=== PATIENT | female | born 1990 | race Asian ===

== ENCOUNTER 2018-02-16 05:38 | Emergency (ER) | payer BC ==
[2018-02-16 06:07] VITALS: BP 114/68; PULSE 82; TEMP 98.5; BMI 24.3
--- NOTE | 2018-02-16 06:13 | PDOC ---
History of Present Illness - General Chief Complaint: Pain Stated Complaint: ABD PAIN Time Seen by Provider: 02/16/18 05:50 History Source: Patient Exam Limitations: No Limitations - History of Present Illness Initial Comments: This is a 27 YOF with h/o Sjogren syndrome, asthma, and presumed passed gallbladder stone (notes episode of elevated liver enzymes and RUQ pain, had HIDA nad MRCP which showed nothing) who p/w 1.5 days of diffuse abdominal pain worse in the umbilical and RUQ regions, nausea, 7 episodes of NBNB vomiting, and loose brown diarrhea. She believes she ate a "bad sandwich" just prior to the onset, resulting in food poisoning. The abdominal pain started out as intermittent sharp pain up to 8 but has become constant since last night. For a short time it began radiating to her right lower back this morning, but this has since resolved. She notes chills and diffuse hand/foot cramping, but no measured fever, bloody/black stool, headache, lightheadedness, chest pain, SOB, dysuria, strange colors/smells to the urine, vaginal bleeding or discharge. Her LMP was three weeks ago and was normal, and she denies any chance she may be . Past History - Past Medical History Allergies/Adverse Reactions: Allergies Allergy/AdvReac Type Severity Reaction Status Date / Time No Known Allergies Allergy Verified 02/16/18 06:07 Home Medications: Ambulatory Orders Azathioprine [Imuran] 0 mg PO DAILY 08/20/15 Hydroxychloroquine Sulfate [Plaquenil] 0 mg PO DAILY 08/20/15 Levofloxacin [Levaquin] 750 mg PO DAILY #5 tablet 08/22/15 Asthma: Yes - Surgical History Orthopedic Surgery: Yes (left footx3) - Reproductive History (#): 0 - Suicide/Smoking/Psychosocial Hx Smoking History: Never smoked Have you smoked in the past 12 months: No Information on smoking cessation initiated: No Hx Alcohol Use: No Drug/Substance Use Hx: No Substance Use Type: None Hx Substance Use Treatment: No Review of Systems - Review of Systems Able to Perform ROS?: Yes Constitutional: No: Chills, Fever, Unexplained wgt Loss HEENTM: No: Nose Congestion, Throat Pain Respiratory: No: Cough, Shortness of Breath Cardiac (ROS): No: Chest Pain, Palpitations ABD/GI: Yes: Constipated, Diarrhea (resolved), Nausea, Vomiting, Other ( abdominal pain). No: Blood Streaked Bowels : No: Burning, Dysuria Musculoskeletal: Yes: Back Pain (right lower). No: Neck Pain Integumentary: No: Bruising, Rash Neurological: No: Headache, Numbness, Tingling, Weakness, Dizziness Endocrine: No: Unexplained Weight Gain, Unexplained Weight Loss *Physical Exam - Vital Signs Last Vital Signs Temp Pulse Resp BP Pulse Ox 98.5 F 82 18 114/68 100 02/16/18 05:59 02/16/18 05:59 02/16/18 05:59 02/16/18 05:59 02/16/18 05:59 - Physical Exam General Appearance: Yes: Nourished, Appropriately Dressed, Other (soft spoken nontoxic-appearing young adult female, awake, alert, answering questions appropriately). No: Apparent Distress HEENT: positive: EOMI, MARLENI, Normal Voice, Hearing Grossly Normal. negative: Scleral Icterus (R), Scleral Icterus (L), Nasal Congestion Neck: positive: Trachea midline, Supple. negative: Tender, Rigid Respiratory/Chest: positive: Lungs Clear, Normal Breath Sounds. negative: Respiratory Distress, Crackles, Rhonchi, Stridor, Wheezing Cardiovascular: positive: Regular Rhythm, Regular Rate, S1, S2. negative: Edema , JVD, Murmur Gastrointestinal/Abdominal: positive: Normal Bowel Sounds, Flat, Soft. negative : Tender, Organomegaly, Pulsatile Mass, Guarding Musculoskeletal: positive: Normal Inspection. negative: Decreased Range of Motion, Vertebral Tenderness Extremity: positive: Normal Capillary Refill, Normal Inspection, Normal Range of Motion. negative: Tender, Cyanosis Integumentary: positive: Normal Color, Dry, Warm. 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 Initial Vital Signs Temp Pulse Resp BP Pulse Ox 98.5 F 82 18 114/68 100 02/16/18 05:59 02/16/18 05:59 02/16/18 05:59 02/16/18 05:59 05/15/18 05:59 Exam: Nontoxic and well appearing adult female, no distress, heart and lungs normal exams, nontender abdomen, normoactive BS. DDX IBNLT: viral gastroenteritis, UTI/pyelonephritis, , cholecystitis ( calculous vs. acalculous), choledocholithiasis, cholangitis, pancreatitis, appendicitis, gastritis, PUD, colitis, diverticulitis wwo abscess or perforation , renal colic, obstructive uropathy, hernia, SBO, mesenteric/bowel ischemia, bowel perforation, malignancy, ovarian torsion, ovarian cyst, ectopic , fibroids, constipation, gas, musculoskeletal, etc. W/U ordered: CBCD CMP Lipase UA UCx Urine Preg EKG TX ordered: IVF Ofirmev Zofran Pepcid Maalox Care endorsed to oncoming day team at the end of my shift. *DC/Admit/Observation/Transfer Diagnosis at time of Disposition: Abdominal pain - Referrals - Patient Instructions - Post Discharge Activity
[2018-02-16] MEDS ORDERED: SODIUM CHLORIDE 0.9% 500 ML INFUS.BAG IV ONE (06:37)
[2018-02-16] MEDS ORDERED: ONDANSETRON 4 MG/2 ML VIAL IVPUSH ONE (06:37)
[2018-02-16] MEDS ORDERED: ACETAMINOPHEN 1000 MG/100 ML VIAL (NON FORMULARY) IVPB ONE (06:37)
[2018-02-16 06:39] LABS: HCG,QUALITATIVE URINE NEGATIVE
[2018-02-16 06:43] LABS: URINE APPEARANCE CLEAR; URINE BILIRUBIN NEGATIVE (<2.0 mg/dL); URINE COLOR COLORLESS; URINE GLUCOSE (UA) NEGATIVE (NEGATIVE); URINE KETONE NEGATIVE (NEGATIVE); URINE LEUK ESTERASE NEGATIVE (NEGATIVE); URINE NITRITE NEGATIVE (NEGATIVE); URINE PROTEIN NEGATIVE (NEGATIVE); URINE UROBILINOGEN NEGATIVE mg/dL (0.2-1.0)
--- NOTE | 2018-02-16 06:49 | PDOC ---
Attending Attestation - Resident Resident Name: AnaNilsa - ED Attending Attestation I have performed the following: I have examined & evaluated the patient, The case was reviewed & discussed with the resident, I agree w/resident's findings & plan, Exceptions are as noted - HPI HPI: 02/16/18 06:45 27y F hx of sgogrens, asthma, elevated transaminitis with negative ERCP a few years ago presnts with vomiting/diarrhea and abdominal pain. The patient notes having a sandwich on thursday then having abdominal pain that was intermittent, cramping, diffuse, associated with multiple episodes of nbnb vomiting followed by approx 5 episodes of watery brown (no blood/melena) diarrhea that has since resolved. episodic periumbilican, RUQ pain that is now constant associated with several episodes of nbnb vomiting w/o any fever/chills, diarrhea, cp, sob, dysuria, vag bleeding (LMP 3 weeks ago). on exam pt no distress vitals wnl abd: mild diffuse tendeness without focality, distractible suspect gastroenteritis, consider possible pancreatitis, uti, cholecystitis, will ck labs, ua, hcg fluids, zofran, tylenol for sypmtomatic relief n ofocal tenderness to suggest imaging at this time 02/16/18 07:30 case signed out to day team to reassess the patient - Physicial Exam PE: 02/20/18 20:11 see above - Medical Decision Making 02/20/18 20:11 see above Heart Score/ECG Review - ECG Impressions Comment:: 02/16/18 07:31 Twelve-lead EKG was performed and reviewed by me. There is normal sinus rhythm with a rate of 55 Benign early repolarization
[2018-02-16 06:54] LABS: BASO % 0.4 % (0-2.0); EOS % 0.1 % (0-4.5); HEMATOCRIT 39.9 % (32.4-45.2); HEMOGLOBIN 13.7 GM/dL (10.7-15.3); LYMPH % 11.4 % (8-40); MCH 31.5 pg (25.7-33.7); MCHC 34.3 g/dl (32.0-36.0); MEAN CELL VOLUME 91.8 fl (80-96); MEAN PLT VOLUME 7.5 fl (7.5-11.1); MONO % 6.7 % (3.8-10.2); NEUT % 81.4 % (42.8-82.8); PLATELET COUNT 178 K/MM3 (134-434); RBC 4.34 M/mm3 (3.60-5.2); RDW 14.3 % (11.6-15.6); WHITE BLOOD COUNT 8.2 K/mm3 (4.0-10.0)
[2018-02-16] MEDS ORDERED: ACETAMINOPHEN INJECTION 100 ML IVPB ONE (06:56)
[2018-02-16] MEDS ORDERED: ONDANSETRON 4 MG/2 ML VIAL ONE (06:56)
--- NOTE | 2018-02-16 07:21 | PDOC ---
*Physical Exam - Vital Signs Last Vital Signs Temp Pulse Resp BP Pulse Ox 98.5 F 82 18 114/68 100 02/16/18 05:59 02/16/18 05:59 02/16/18 05:59 02/16/18 05:59 02/16/18 05:59 ED Treatment Course - LABORATORY CBC & Chemistry Diagram: 02/16/18 06:40 02/16/18 06:40 - ADDITIONAL ORDERS Additional order review: Laboratory Results 02/16/18 06:10 Urine Color Colorless Urine Appearance Clear Urine pH 7.0 D Ur Specific [place] 1.000 L Urine Protein Negative Urine Glucose (UA) Negative Urine Ketones Negative Urine Blood Negative Urine Nitrite Negative Urine Bilirubin Negative Urine Urobilinogen Negative Ur Leukocyte Esterase Negative Urine HCG, Qual Negative 02/16/18 06:40 RBC 4.34 MCV 91.8 MCHC 34.3 RDW 14.3 MPV 7.5 Neutrophils % 81.4 D Lymphocytes % 11.4 D Monocytes % 6.7 Eosinophils % 0.1 D Basophils % 0.4 - Medications Given in the ED: ED Medications Discontinued Medications Generic Name Dose Route Start Last Admin Trade Name Ryan PRN Reason Stop Dose Admin Acetaminophen 1,000 mg 02/16/18 06:37 02/16/18 07:08 Ofirmev Injection - IVPB 02/16/18 06:38 1,000 mg ONCE ONE Administration Ondansetron HCl 4 mg 02/16/18 06:37 02/16/18 07:08 Zofran Injection IVPUSH 02/16/18 06:38 4 mg ONCE ONE Administration Sodium Chloride 1,000 ml 02/16/18 06:37 02/16/18 07:07 Normal Saline - IV 02/16/18 06:38 1,000 ml ONCE ONE Administration Medical Decision Making - Medical Decision Making 02/16/18 07:17 The patient was signed out to me by Dr. Perez, night team. The patient is a 27F who presented with generalized abdominal pain, nausea, and vomiting. Pending labs. May image depending on lab results. Pt is comfortable in bed. 02/16/18 08:29 Pt has a nontender abdomen on my examination. She states that her pain went from a 10 to a 4/10. All labs including CBC, CMP, and UA WNL. 02/16/18 09:45 Will add serum preg. 02/16/18 10:14 Serum preg negative. Will d/c pt with marely and PCP f/u. Pt states she feels much better and agrees to f/u. *DC/Admit/Observation/Transfer Diagnosis at time of Disposition: Abdominal pain Qualifiers: Abdominal location: unspecified location Qualified Code(s): R10.9 - Unspecified abdominal pain Nausea & vomiting Qualifiers: Vomiting type: unspecified Vomiting Intractability: non-intractable Qualified Code(s): R11.2 - Nausea with vomiting, unspecified - Discharge Dispostion Disposition: HOME Condition at time of disposition: Stable Decision to Admit order: No - Referrals - Patient Instructions Printed Discharge Instructions: DI for Abdominal Pain-Adult Additional Instructions: Please follow up with your primary care physician in 2-3 days. Please take your medications as prescribed and as needed for nausea. Please return to the ER if you have any signs or symptoms of chest pain, shortness of breath, uncontrollable fever, chills, nausea, vomiting, numbness, tingling, or weakness in any part of your body, changes in vision, or slurred speech. Please return to the ER if symptoms persist, worsen, or new symptoms arise. - Post Discharge Activity
[2018-02-16 07:40] LABS: ALK PHOS 93 U/L (45-117); ANION GAP 10 (8-16); BILIRUBIN,TOTAL 0.7 mg/dL (0.2-1.0); BLOOD UREA NITROGEN 5 mg/dL (7-18); CALCIUM 8.9 mg/dL (8.5-10.1); CHLORIDE 100 mmol/L (98-107); CO2 25 mmol/L (21-32); CREATININE 0.7 mg/dL (0.55-1.02); GLUCOSE,RANDOM 118 mg/dL (74-106); LIPASE 101 U/L (73-393); POTASSIUM 3.7 mmol/L (3.5-5.1); SGOT/AST 56 U/L (15-37); SGPT/ALT 54 U/L (12-78); SODIUM 135 mmol/L (136-145); TOT PROT 7.8 g/dl (6.4-8.2)
--- NOTE | 2018-02-16 11:52 | EKG ---
Test Reason : Blood Pressure : / mmHG Vent. Rate : 055 BPM Atrial Rate : 055 BPM P-R Int : 130 ms QRS Dur : 084 ms QT Int : 442 ms P-R-T Axes : 052 072 066 degrees QTc Int : 422 ms POOR DATA QUALITY, INTERPRETATION MAY BE ADVERSELY AFFECTED SINUS BRADYCARDIA ST ELEVATION, CONSIDER EARLY REPOLARIZATION BORDERLINE ECG NO PREVIOUS ECGS AVAILABLE Confirmed by MD BROOKS, JAMES ([id number]) on 02/16/2018 11:51:28 AM Referred By: Confirmed By:JAMES GUY MD
== END 2018-02-16 10:34 | disposition home or self-care (01) ==
LOC: JER 05:38
PROC: 3E033GC Introduction of Other Therapeutic Substance into Peripheral Vein, Percutaneous Approach (ICD-10-PCS; principal; 2018-02-16)
PROC: 3E033NZ Introduction of Analgesics, Hypnotics, Sedatives into Peripheral Vein, Percutaneous Approach (ICD-10-PCS; 2018-02-16)
DX: R10.84 Generalized abdominal pain (principal); J45.909 Unspecified asthma, uncomplicated; M35.00 Sjogren syndrome, unspecified
CPT/HCPCS: 36415; 80053; 81003; 83690; 84703; 85025; 87086; 93005; 93010; 99282-25; J0131

== ENCOUNTER 2018-10-20 09:41 | Inpatient (IN) | payer BC, OTHER ==
[2018-10-20] MEDS ORDERED: ACETAMINOPHEN 1000 MG/100 ML VIAL (NON FORMULARY) IVPB ONE (10:33)
[2018-10-20] MEDS ORDERED: SODIUM CHLORIDE 1,000 ML IV STA (10:33)
[2018-10-20] MEDS ORDERED: ACETAMINOPHEN INJECTION 100 ML IVPB ONE (11:24)
--- NOTE | 2018-10-20 11:33 | PDOC ---
History of Present Illness - General History Source: Patient Exam Limitations: No Limitations - History of Present Illness Initial Comments: 10/20/18 11:37 The patient is a 28-year-old female, with a past medical history of Sjogren syndrome (on imuran and plaquenil) and asthma, who presents to the ED for 3 days of abdominal pain. She describes the pain as intermittent, achy in sensation,10/10 when the pain initially began but now a 6/10 in the ER, located in the epigastric region with radiation to the back, no exacerbating/ alleviating factors. Patient states that the pain initially began on Thursday, but resolved on its own. Pain recurred last night after the patient ate koo for dinner, but progressively worsened as the night progressed, taking 2-3 hours to resolve. She reports associated nausea, vomiting, and chills. The patient states that the pain developed again this morning after drinking coffee. Patient has not been taking her sjogrens medications for the past few weeks because she has not refilled her prescriptions. She does report experiencing dry eyes and dry mouth, which she normally experiences with Sjogren 's. LMP was a week ago. The patient denies any fever or diarrhea. Denies any frequency, urgency, hesitancy, dysuria, or hematuria. Denies any chest pain or shortness of breath. Allergies: NKA Social History: Social drinker. Former smoker (quit before the New Year). Denies any drug use. Surgical History: 3 sx LT foot. <Kami Reyes - Last Filed: 10/20/18 11:37> - General History Source: Patient Exam Limitations: No Limitations <Erin Eddy - Last Filed: 10/23/18 16:46> - General Chief Complaint: Pain, Acute Stated Complaint: ABD PAIN Time Seen by Provider: 10/20/18 10:08 Past History <Kami Reyes - Last Filed: 10/20/18 11:37> - Past Medical History Asthma: Yes COPD: No Other medical history: Auto immune disorder, gall bladder problem - Surgical History Orthopedic Surgery: Yes (left footx3) - Reproductive History (#): 0 - Immunization History Immunization Up to Date: No - Suicide/Smoking/Psychosocial Hx Smoking History: Former smoker Have you smoked in the past 12 months: No Information on smoking cessation initiated: No Hx Alcohol Use: No Drug/Substance Use Hx: No Substance Use Type: None Hx Substance Use Treatment: No <Erin Eddy - Last Filed: 10/23/18 16:46> - Past Medical History Allergies/Adverse Reactions: Allergies Allergy/AdvReac Type Severity Reaction Status Date / Time No Known Allergies Allergy Verified 10/20/18 11:52 Home Medications: Ambulatory Orders NK [No Known Home Medication] 10/22/18 Review of Systems - Review of Systems Able to Perform ROS?: Yes Comments:: 10/20/18 11:51 GENERAL/CONSTITUTIONAL: (+)Chills. No fever. No weakness. HEAD, EYES, EARS, NOSE AND THROAT: (+)Dry eyes, dry mouth. No change in vision. No ear pain or discharge. No sore throat. CARDIOVASCULAR: No chest pain or shortness of breath. RESPIRATORY: No cough, wheezing, or hemoptysis. GASTROINTESTINAL: (+)Nausea, vomiting, abdominal pain. No diarrhea or constipation. GENITOURINARY: No dysuria, frequency, or change in urination. MUSCULOSKELETAL: (+)Back pain. No joint swelling or pain. No neck pain. SKIN: No rash NEUROLOGIC: No headache, vertigo, loss of consciousness, or change in strength/ sensation. ENDOCRINE: No increased thirst. No abnormal weight change. HEMATOLOGIC/LYMPHATIC: No anemia, easy bleeding, or history of blood clots. ALLERGIC/IMMUNOLOGIC: No hives or skin allergy. <Kami Reyes - Last Filed: 10/20/18 11:37> *Physical Exam - Vital Signs Last Vital Signs Temp Pulse Resp BP Pulse Ox 98.0 F 73 18 122/81 100 10/20/18 10:05 10/20/18 10:05 10/20/18 10:05 10/20/18 10:05 10/20/18 10:05 - Physical Exam Comments: 10/20/18 11:52 GENERAL: The patient is in no acute distress. HEAD: Normal with no signs of trauma. EYES: PERRLA, EOMI, sclera anicteric, conjunctiva clear. ENT: Ears normal, nares patent, oropharynx clear without exudates. Moist mucous membranes. NECK: Normal range of motion, supple without lymphadenopathy, JVD, or masses. LUNGS: Breath sounds equal, clear to auscultation bilaterally. No wheezes, and no crackles. HEART:Regular rate and rhythm, normal S1 and S2 without murmur, rub or gallop. ABDOMEN: (+)LUQ/RUQ tenderness to palpation, epigastric tenderness to palpation. Soft, normoactive bowel sounds. No guarding, no rebound. No masses palpable. EXTREMITIES: Normal range of motion, no edema. No clubbing or cyanosis. No erythema, or tenderness. NEUROLOGICAL: Cranial nerves II through XII grossly intact. Normal speech. No focal neurological deficits. MUSCULOSKELETAL: Back non-tender to palpation, no CVA tenderness SKIN: Warm, Dry, normal turgor, no rashes or lesions noted. <Kami Reyes - Last Filed: 10/20/18 11:37> - Vital Signs Last Vital Signs Temp Pulse Resp BP Pulse Ox 98.0 F 73 18 122/81 100 10/20/18 10:05 10/20/18 10:05 10/20/18 10:05 10/20/18 10:05 10/20/18 10:05 <Erin Eddy - Last Filed: 10/23/18 16:46> Moderate Sedation - Procedure Monitoring Vital Signs: Procedure Monitoring Vital Signs Temperature 98.0 F 10/20/18 10:05 Pulse Rate 73 10/20/18 10:05 Respiratory Rate 18 10/20/18 10:05 Blood Pressure 122/81 10/20/18 10:05 O2 Sat by Pulse Oximetry (%) 100 10/20/18 10:05 <Kami Reyes - Last Filed: 10/20/18 11:37> - Procedure Monitoring Vital Signs: Procedure Monitoring Vital Signs Temperature 98.0 F 10/20/18 10:05 Pulse Rate 73 10/20/18 10:05 Respiratory Rate 18 10/20/18 10:05 Blood Pressure 122/81 10/20/18 10:05 O2 Sat by Pulse Oximetry (%) 100 10/20/18 10:05 <Erin Eddy - Last Filed: 10/23/18 16:46> ED Treatment Course - LABORATORY CBC & Chemistry Diagram: 10/21/18 07:00 10/22/18 06:00 - RADIOLOGY Radiology Studies Ordered: Category Date Time Status ABDOMEN US -LIMITED [US] Stat Ultrasound 10/20/18 10:28 Ordered <Erin Eddy - Last Filed: 10/23/18 16:46> Medical Decision Making - Medical Decision Making 10/20/18 11:28 28 yo F presenting with a complaint of upper abdominal pain h/o Sjogren and asthma, not currently on any medication (either Imuran or Plaquenil. typical symptoms - dry eyes, reynauds, weakness if severe) Pt has a known h/o gall bladder problems (per her, us negative in the past, her GI doctor told her she had acalculous cholecystitis) She presents with a complaint of upper abdominal pain No fevers or chills No vomiting No diarrhea No dysuria LMP 2 weeks ago No abdominal surgeries in the past Social alcohol, no drugs, quit tobacco Of note: In 2014 pt had a similar presentation for abdominal pain. At that time, US demonstrated a nondistended gallbladder, thickened gallbladder wall with significant edema. No gallstones. Possible acalculous cholecystitis. HIDA demonstrtes possible biliary dyskinesia Pt was given Levaquin and Flagyl, rapidly improved, ultimately discharged on Levaquin Per discharge planning note, plan was for possible surgery in the future if symptoms return. Will do: Labs US IVF Tylenol Re Assess 10/20/18 12:33 Laboratory Tests 10/20/18 10/20/18 10/20/18 11:30 11:30 11:30 WBC 11.0 H Hgb 15.5 H Hct 44.9 Plt Count 459 H D Neutrophils % 80.3 Lymphocytes % 11.4 INR 1.01 Sodium Potassium Chloride BUN Creatinine Random Glucose Calcium Total Bilirubin AST ALT Alkaline Phosphatase Total Protein Total Amylase Lipase Serum , Qual Negative Urine Blood Urine Nitrite Ur Leukocyte Esterase 10/20/18 10/20/18 11:30 11:30 WBC Hgb Hct Plt Count Neutrophils % Lymphocytes % INR Sodium 137 Potassium 3.7 Chloride 101 BUN 10 Creatinine 0.7 Random Glucose 81 Calcium 10.2 H Total Bilirubin 1.4 H AST 446 H ALT 237 H Alkaline Phosphatase 127 H Total Protein 8.3 H Total Amylase 61 Lipase 139 Serum , Qual Urine Blood Negative Urine Nitrite Negative Ur Leukocyte Esterase Negative US pending 10/20/18 16:37 US - no stones, no PCCF, no GB wall thickening CT - no obstruction, liver lesion, no other findings call placed to Dr. Portillo Admitted to the hospitalist service clinical Impression: gallbladder dyskinesia, initial presentation transaminitis, initial presentation <Erin Eddy - Last Filed: 10/23/18 16:46> *DC/Admit/Observation/Transfer - Attestations Scribe Attestion: 10/20/18 11:53 Documentation prepared by Kami Reyes, acting as medical sociologist for Erin Eddy MD. <Kami Reyes - Last Filed: 10/20/18 11:37> - Discharge Dispostion Decision to Admit order: Yes <Erin Eddy - Last Filed: 10/23/18 16:46> Diagnosis at time of Disposition: Inflammation gall bladder - Discharge Dispostion Disposition: HOME Condition at time of disposition: Improved
[2018-10-20 11:54] LABS: URINE APPEARANCE CLEAR; URINE BILIRUBIN NEGATIVE (<2.0 mg/dL); URINE COLOR LTYELLOW; URINE GLUCOSE (UA) NEGATIVE (NEGATIVE); URINE KETONE TRACE (NEGATIVE); URINE LEUK ESTERASE NEGATIVE (NEGATIVE); URINE NITRITE NEGATIVE (NEGATIVE); URINE PROTEIN NEGATIVE (NEGATIVE); URINE UROBILINOGEN NEGATIVE mg/dL (0.2-1.0)
[2018-10-20 12:03] LABS: BASO % 0.8 % (0-2.0); EOS % 0.9 % (0-4.5); HEMATOCRIT 44.9 % (32.4-45.2); HEMOGLOBIN 15.5 GM/dL (10.7-15.3); LYMPH % 11.4 % (8-40); MCH 31.8 pg (25.7-33.7); MCHC 34.5 g/dl (32.0-36.0); MEAN CELL VOLUME 92.2 fl (80-96); MEAN PLT VOLUME 7.8 fl (7.5-11.1); MONO % 6.6 % (3.8-10.2); NEUT % 80.3 % (42.8-82.8); PLATELET COUNT 459 K/MM3 (134-434); RBC 4.87 M/mm3 (3.60-5.2); RDW 14.1 % (11.6-15.6)
[2018-10-20 12:18] LABS: INR 1.01 (0.83-1.09); PROTHROMBIN TIME (PATIENT) 11.9 SEC (9.7-13.0)
[2018-10-20 12:25] LABS: ALBUMIN 4.3 g/dl (3.4-5.0); ALK PHOS 127 U/L (45-117); AMYLASE 61 U/L (25-115); ANION GAP 7 MMOL/L (8-16); BILIRUBIN,TOTAL 1.4 mg/dL (0.2-1); BLOOD UREA NITROGEN 10 mg/dL (7-18); CALCIUM 10.2 mg/dL (8.5-10.1); CHLORIDE 101 mmol/L (98-107); CO2 30 mmol/L (21-32); CREATININE 0.7 mg/dL (0.55-1.3); GLUCOSE,RANDOM 81 mg/dL (74-106); LIPASE 139 U/L (73-393); POTASSIUM 3.7 mmol/L (3.5-5.1); SGOT/AST 446 U/L (15-37); SGPT/ALT 237 U/L (13-61); SODIUM 137 mmol/L (136-145); TOT PROT 8.3 g/dl (6.4-8.2)
[2018-10-20] MEDS ORDERED: morphine CARPU-JECT 4 MG/1 ML DISP.SYRIN IVPUSH ONE (13:57)
[2018-10-20] MEDS ORDERED: morphine SULFATE 4 MG/ML VIAL ONE (14:53)
--- NOTE | 2018-10-20 17:51 | HP ---
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 HISTORY OF PRESENT ILLNESS: 28yo F with history of Sjogren's disease and controlled asthma who presents today with 3 days of epigastric abdominal pain 9/10 stabbing in nature with radiation to the back. Pt reports worsening with eating with her last meal being a koo dish for dinner. Pt reports the pain lasts for 2-3 hours at a time and then resolves, however it will return. Pt also endorses chills with some cold sweats during the past three days. Pt endorses nausea with vomiting NB /Nb emesis x1. Denies lightheadedness, SOB, CP/discomfort, palpitations, diarrhea/constipation. Recent Travel: Denies PAST MEDICAL HISTORY: Sjogren's syndrome Asthma PAST SURGICAL HISTORY: None Social History: Smoking: Denies Alcohol: Social; not in past week Drugs: Denies Lives alone in own apartment; family nearby LMP 1 week ago Family History: Noncontributory Allergies No Known Allergies Allergy (Verified 10/20/18 11:52) HOME MEDICATIONS: Home Medications Medication Instructions Recorded Unobtainable 10/20/18 REVIEW OF SYSTEMS As per [facility] PHYSICAL EXAMINATION Vital Signs - 24 hr 10/20/18 10:05 Temperature 98.0 F Pulse Rate 73 Respiratory 18 Rate Blood Pressure 122/81 O2 Sat by Pulse 100 Oximetry (%) GENERAL: NAD, awake, alert, and fully oriented HEENT: NC/AT, PABLITO, sclera anicteric, MMM LUNGS: CTA bilaterally with good inspiratory effort. No wheezes, and no crackles. No accessory muscle use. HEART: RRR, normal S1 and S2 without murmur ABDOMEN: Soft, nondistended, minimal tenderness with palpation in RUQ, normoactive BS, no guarding, no rebound, negative Mejía's sign, no hepatomegaly per percussion. MUSCULOSKELETAL: No CVA tenderness. EXTREMITIES: 2+ distal pulses b/l, warm, well-perfused. No peripheral edema. PSYCHIATRIC: Cooperative. Good eye contact. Appropriate mood and affect. SKIN: Warm, dry, no rashes or lesions noted, normal capillary refill. Laboratory Results - last 24 hr 10/20/18 11:30 WBC 11.0 H RBC 4.87 Hgb 15.5 H Hct 44.9 MCV 92.2 MCH 31.8 MCHC 34.5 RDW 14.1 Plt Count 459 H D MPV 7.8 Absolute Neuts (auto) 8.8 H Neutrophils % 80.3 Lymphocytes % 11.4 Monocytes % 6.6 Eosinophils % 0.9 D Basophils % 0.8 Nucleated RBC % 0 PT with INR 11.90 INR 1.01 Sodium Potassium Chloride Carbon Dioxide Anion Gap BUN Creatinine Creat Clearance w eGFR Random Glucose Calcium Total Bilirubin AST ALT Alkaline Phosphatase Total Protein Albumin Total Amylase Lipase Serum , Qual Negative Urine Color Urine Appearance Urine pH Ur Specific [place] Urine Protein Urine Glucose (UA) Urine Ketones Urine Blood Urine Nitrite Urine Bilirubin Urine Urobilinogen Ur Leukocyte Esterase 10/20/18 10/20/18 11:30 11:30 WBC RBC Hgb Hct MCV MCH MCHC RDW Plt Count MPV Absolute Neuts (auto) Neutrophils % Lymphocytes % Monocytes % Eosinophils % Basophils % Nucleated RBC % PT with INR INR Sodium 137 Potassium 3.7 Chloride 101 Carbon Dioxide 30 Anion Gap 7 L BUN 10 Creatinine 0.7 Creat Clearance w eGFR > 60 Random Glucose 81 Calcium 10.2 H Total Bilirubin 1.4 H AST 446 H ALT 237 H Alkaline Phosphatase 127 H Total Protein 8.3 H Albumin 4.3 Total Amylase 61 Lipase 139 Serum , Qual Urine Color [place] Urine Appearance Clear Urine pH 6.0 Ur Specific [place] 1.006 L Urine Protein Negative Urine Glucose (UA) Negative Urine Ketones Trace H Urine Blood Negative Urine Nitrite Negative Urine Bilirubin Negative Urine Urobilinogen Negative Ur Leukocyte Esterase Negative ASSESSMENT/PLAN: R/o Biliary dyskinesia Sjogren's syndrome Transaminitis Thrombocytosis Asthma (controlled) --Dr. Whiteside's on board --HIDA scan in AM --NPO status --Morphine 2mg q4h PRN pain 6-10 --IVF LR@150cc/hr x1 bag --Coverage of Zosyn 3.375m q8h IVPB for possible acalculous cholecystitis --RUQ US and CT A/P reviewed and noted --Will hold off on Plaquenil and Imuran continuation due to transaminitis FEN: Fluids: LR@150cc/hr Electrolyte abnormalities: None Nutrition: NPO PPX: DVT - Early ambulation due to low risk GI -Not indicated Dispo: M/S Case discussed with Dr. Portillo and Dr. Brooke Miller, DO - IM PGY-2 Visit type - Emergency Visit Emergency Visit: Yes ED Registration Date: 10/20/18 Care time: The patient presented to the Emergency Department on the above date and was hospitalized for further evaluation of their emergent condition. - New Patient This patient is new to me today: Yes Date on this admission: 10/20/18 - Critical Care Critical Care patient: No
[2018-10-20] MEDS ORDERED: ACETAMINOPHEN 1000 MG/100 ML VIAL (NON FORMULARY) IVPB PRN (17:54)
[2018-10-20] MEDS ORDERED: LACTATED RINGERS SOLUTION 1,000 ML/1,000 ML INFUS.BAG IV SCH (18:00)
[2018-10-20] MEDS: LACTATED RINGERS SOLUTION 1,000 ML/1,000 ML INFUS.BAG IV SCH ×2 (18:35→23:49)
--- NOTE | 2018-10-20 18:38 | PN ---
Teaching Attending Note Name of Resident: Dawson Miller ATTENDING PHYSICIAN STATEMENT I saw and evaluated the patient. I reviewed the resident's note and discussed the case with the resident. I agree with the resident's findings and plan as documented. SUBJECTIVE: Patient is a 28yo female presented with severe RUQ pain, had a similar episode 5 years ago. OBJECTIVE: Vital Signs Temperature 97.3 F L 10/20/18 18:34 Pulse Rate 60 10/20/18 18:34 Respiratory Rate 18 10/20/18 18:34 Blood Pressure 118/85 10/20/18 18:34 O2 Sat by Pulse Oximetry (%) 100 10/20/18 18:34 GENERAL: Awake, alert, and fully oriented, in no acute distress. HEAD: Normal with no signs of trauma. EYES: Pupils equal, round and reactive to light, extraocular movements intact, sclera anicteric, conjunctiva clear. EARS, NOSE, THROAT: Ears normal, oropharynx clear without exudates. Moist mucous membranes. NECK: Normal range of motion, supple without lymphadenopathy, JVD, or masses. LUNGS: Breath sounds equal, clear to auscultation bilaterally. No wheezes, and no crackles. No accessory muscle use. HEART: Regular rate and rhythm, normal S1 and S2 without murmur, rub or gallop. ABDOMEN: positive for Mejía's sign, Soft, tender given Morpine . No hepatomegaly or splenomegaly. EXTREMITIES: 2+ pulses, warm, well-perfused. No cyanosis. No clubbing. No peripheral edema. NEUROLOGICAL: Cranial nerves II-XII intact. Normal speech. Normal gait. PSYCHIATRIC: Cooperative. Good eye contact. Appropriate mood and affect. SKIN: Warm, dry, normal turgor, no rashes or lesions noted, normal capillary refill. CBCD WBC 11.0 K/mm3 (4.0-10.0) H 10/20/18 11:30 RBC 4.87 M/mm3 (3.60-5.2) 10/20/18 11:30 Hgb 15.5 GM/dL (10.7-15.3) H 10/20/18 11:30 Hct 44.9 % (32.4-45.2) 10/20/18 11:30 MCV 92.2 fl (80-96) 10/20/18 11:30 MCHC 34.5 g/dl (32.0-36.0) 10/20/18 11:30 RDW 14.1 % (11.6-15.6) 10/20/18 11:30 Plt Count 459 K/MM3 (134-434) H D 10/20/18 11:30 MPV 7.8 fl (7.5-11.1) 10/20/18 11:30 CMP Sodium 137 mmol/L (136-145) 10/20/18 11:30 Potassium 3.7 mmol/L (3.5-5.1) 10/20/18 11:30 Chloride 101 mmol/L (98-107) 10/20/18 11:30 Carbon Dioxide 30 mmol/L (21-32) 10/20/18 11:30 Anion Gap 7 MMOL/L (8-16) L 10/20/18 11:30 BUN 10 mg/dL (7-18) 10/20/18 11:30 Creatinine 0.7 mg/dL (0.55-1.3) 10/20/18 11:30 Creat Clearance w eGFR > 60 (>60) 10/20/18 11:30 Random Glucose 81 mg/dL (74-106) 10/20/18 11:30 Calcium 10.2 mg/dL (8.5-10.1) H 10/20/18 11:30 Total Bilirubin 1.4 mg/dL (0.2-1) H 10/20/18 11:30 AST 446 U/L (15-37) H 10/20/18 11:30 ALT 237 U/L (13-61) H 10/20/18 11:30 Alkaline Phosphatase 127 U/L (45-117) H 10/20/18 11:30 Total Protein 8.3 g/dl (6.4-8.2) H 10/20/18 11:30 Albumin 4.3 g/dl (3.4-5.0) 10/20/18 11:30 Current Medications Generic Name Dose Route Start Last Admin Trade Name Freq PRN Reason Stop Dose Admin Lactated Ringer's 1,000 ml in 1,000 mls @ 150 mls/hr 10/20/18 18:30 10/20/18 18:35 Lactated Ringers Solution IV 150 mls/hr ASDIR SUDHAKAR Administration Morphine Sulfate 2 mg 10/20/18 17:51 Morphine Sulfate IVPUSH Q4H PRN PAIN LEVEL 6-10 Home Medications Medication Instructions Recorded Unobtainable 10/20/18 US - no stones, no PCCF, no GB wall thickening CT - no obstruction, liver lesion, no other findings ASSESSMENT AND PLAN: Patient is a 28yo F with history of Sjogren's disease and asthma who presents today with 3 days hx of RUQ abdominal pain 9/10 stabbing in nature with radiation to the back, with worsening symptoms after having a koo dish for dinner. also c/o having chills with some cold sweats during the past three days. # Acute cholecystitis cannot be ruled out : celina start the patient on IV antibiotic, Zosyn, dr aguirre seen the patient. hida scan in am , Gi consult . # Elevated transaminitis : will monitor, will repeat in am DVt Px: heparin sq
[2018-10-20] MEDS ORDERED: PIPERACILLIN/TAZOB 3.375 GM 3.375 GM in DEXTROSE 5%-WATER - 50 ML IVPB SCH (19:00)
[2018-10-20] MEDS ORDERED: PIPERACILLIN/TAZOB 3.375 GM 3.375 GM/50 ML BAG IVPB ONE (19:25)
[2018-10-20] MEDS: PIPERACILLIN/TAZOB 3.375 GM 3.375 GM in DEXTROSE 5%-WATER - 50 ML IVPB SCH (19:30)
[2018-10-20] MEDS ORDERED: PIPERACILLIN/TAZOB 4.5 GM 4.5 GM in DEXTROSE 5%-WATER 100 ML IVPB SCH (21:00)
--- NOTE | 2018-10-20 21:05 | CONSULT ---
Consult Consult Specialty:: General Surgery Reason for Consultation:: biliary dyskinesia - History of Present Illness Chief Complaint: andominal pain after meal History of Present Illness: 28yo female with PMG Sjogren's disease, controlled asthma who presents today with 3 days of epigastric abdominal pain 9/10 stabbing in nature with radiation to the back. Pt reports worsening with eating with her last meal being a koo dish for dinner. Pt reports the pain lasts for 2-3 hours at a time and then resolves, however it will return. Pt also endorses chills with some cold sweats during the past three days. Pt endorses nausea with vomiting NB/Nb emesis x1. Denies lightheadedness, SOB, CP/discomfort, palpitations, diarrhea/ constipation. We were asked to assess. - History Source History Provided By: Patient, Medical Record Limitations to Obtaining History: No Limitations - Past Medical History Pulmonary: Yes: Asthma ...: No - Alcohol/Substance Use Hx Alcohol Use: No History of Substance Use: reports: None - Smoking History Smoking history: Former smoker Have you smoked in the past 12 months: No - Social History ADL: Independent History of Recent Travel: No Home Medications - Allergies Allergies/Adverse Reactions: Allergies Allergy/AdvReac Type Severity Reaction Status Date / Time No Known Allergies Allergy Verified 10/20/18 11:52 - Home Medications Home Medications: Ambulatory Orders Unobtainable 10/20/18 Review of Systems - Review of Systems Constitutional: denies: Chills, Fever Eyes: denies: Blind Spots, Recent Change in Vision HENT: denies: Difficult Swallowing, Throat Pain Neck: denies: Decreased ROM, Pain on Movement Cardiovascular: denies: Chest Pain, Palpitations Respiratory: denies: Cough, SOB Gastrointestinal: denies: Abdominal Pain, Bloating, Constipation, Diarrhea Genitourinary: denies: Discharge, Dysuria, Flank Pain Integumentary: denies: Pallor, Pruritis, Rash Neurological: denies: Syncope, Tremors Endocrine: denies: Unexplained Weight Gain, Unexplained Weight Loss Hematology/Lymphatic: denies: Easily Bruised, Excessive Bleeding Psychiatric: denies: Anxiety, Depression Physical Exam Vital Signs: Vital Signs Temperature 97.3 F L 10/20/18 18:34 Pulse Rate 60 10/20/18 18:34 Respiratory Rate 18 10/20/18 18:34 Blood Pressure 118/85 10/20/18 18:34 O2 Sat by Pulse Oximetry (%) 100 10/20/18 18:34 Constitutional: Yes: Well Nourished, No Distress, Calm Eyes: Yes: Conjunctiva Clear, EOM Intact HENT: Yes: Atraumatic, Normocephalic Neck: Yes: Supple, Trachea Midline Cardiovascular: Yes: Regular Rate and Rhythm, S1, S2 Respiratory: Yes: Regular, CTA Bilaterally Gastrointestinal: Yes: Normal Bowel Sounds, Soft, Tenderness (RUQ tenderness. - murphys). No: Tenderness, Epigastrium ...Rectal Exam: Yes: Deferred Renal/: No: CVA Tenderness - Left, CVA Tenderness - Right Breast(s): No: Mass, Nipple Inversion, Skin Changes Musculoskeletal: No: Muscle Pain, Muscle Weakness Extremities: No: Cool, Cyanosis Edema: No Peripheral Pulses WNL: Yes Integumentary: No: Jaundice, Rash, Skin Tear Neurological: Yes: Alert, Oriented Psychiatric: Yes: Alert, Oriented Labs: CBC, BMP 10/20/18 11:30 10/20/18 11:30 Imaging - Results Cat Scan: Report Reviewed, Image Reviewed (No clear stigmata of cholecystitis) Ultrasound: Report Reviewed, Image Reviewed MRI: Report Reviewed, Image Reviewed (no cholelithiasis and no choledocholithiasis) Other: Report Reviewed, Image Reviewed (HIDA negative, GB visualization after 30 mins) Problem List - Problems (1) Recurrent biliary colic Assessment/Plan: 28yo female with recurrent biliary colic, previous diagnosis of GB dyskinesia NPO and IVF hydation IV antibiotics HIDA GI evaluation Thank you for the opportunity to participate in the care of this patient. Code(s): K80.50 - CALCULUS OF BILE DUCT W/O CHOLANGITIS OR CHOLECYST W/O OBST (2) Inflammation gall bladder Code(s): K81.9 - CHOLECYSTITIS, UNSPECIFIED (3) Asthma Code(s): J45.909 - UNSPECIFIED ASTHMA, UNCOMPLICATED Qualifiers: Asthma severity: mild intermittent (4) RUQ abdominal pain Code(s): R10.11 - RIGHT UPPER QUADRANT PAIN (5) Sjogren's disease Code(s): M35.00 - SICCA SYNDROME, UNSPECIFIED
[2018-10-20] MEDS: MORPHINE SULFATE 2 MG/ML VIAL IVPUSH PRN (22:55)
[2018-10-21 00:41] VITALS: BMI 21.3
[2018-10-21] MEDS ORDERED: PIPERACILLIN/TAZOBACTAM 3.375 GM VIAL IVPB ONE (01:32)
[2018-10-21] MEDS ORDERED: DEXTROSE 5%-WATER - 50 ML IVPB ONE (01:33)
[2018-10-21] MEDS: PIPERACILLIN/TAZOB 3.375 GM 3.375 GM in DEXTROSE 5%-WATER - 50 ML IVPB SCH (02:47)
[2018-10-21] MEDS: LACTATED RINGERS SOLUTION 1,000 ML/1,000 ML INFUS.BAG IV SCH (07:35)
[2018-10-21 07:45] LABS: HEMATOCRIT 35.3 % (32.4-45.2); MCH 32.1 pg (25.7-33.7); MEAN CELL VOLUME 94.3 fl (80-96); MEAN PLT VOLUME 7.7 fl (7.5-11.1); PLATELET COUNT 328 K/MM3 (134-434); RBC 3.74 M/mm3 (3.60-5.2); WHITE BLOOD COUNT 5.4 K/mm3 (4.0-10.0)
[2018-10-21 09:42] LABS: ALBUMIN 3.2 g/dl (3.4-5.0); ALK PHOS 94 U/L (45-117); ANION GAP 9 MMOL/L (8-16); BILIRUBIN,TOTAL 0.9 mg/dL (0.2-1); BLOOD UREA NITROGEN 9 mg/dL (7-18); CALCIUM 8.4 mg/dL (8.5-10.1); CHLORIDE 107 mmol/L (98-107); CO2 26 mmol/L (21-32); CREATININE 0.7 mg/dL (0.55-1.3); GLUCOSE,RANDOM 75 mg/dL (74-106); POTASSIUM 4.3 mmol/L (3.5-5.1); SGOT/AST 131 U/L (15-37); SGPT/ALT 185 U/L (13-61); SODIUM 142 mmol/L (136-145)
[2018-10-21] MEDS ORDERED: FLU VACCINE QUAD 60 MCG/0.5 ML (MDV 18-19) IM ONE (10:00)
[2018-10-21] MEDS: MORPHINE SULFATE 2 MG/ML VIAL IVPUSH PRN (11:51)
--- NOTE | 2018-10-21 11:57 | EKG ---
Test Reason : Blood Pressure : / mmHG Vent. Rate : 057 BPM Atrial Rate : 057 BPM P-R Int : 158 ms QRS Dur : 084 ms QT Int : 426 ms P-R-T Axes : 059 073 067 degrees QTc Int : 414 ms SINUS BRADYCARDIA OTHERWISE NORMAL ECG WHEN COMPARED WITH ECG OF 16-FEB-2018 06:43, NO SIGNIFICANT CHANGE WAS FOUND Confirmed by JULIANN LIRA MD ([id number]) on 10/21/2018 11:57:20 AM Referred By: Confirmed By:JULIANN LIRA MD
--- NOTE | 2018-10-21 13:48 | CON.GI ---
Consult Consult Specialty:: GI Referred by:: Hospitalist Service Reason for Consultation:: Abnormal LFTs - History of Present Illness Chief Complaint: Upper abdominal pain History of Present Illness: 28F admitted for evaluation of upper abdominal pain. Ms. Estrada states that she was in her USOH up until Thursday evening. 15 minutes after eating dinner (koo ) that night, she developed left sided upper abdominal pain. the pain then radiated to the right side of her abdomen. The pain resolved suddenly after about 10 minutes. Thursday evening, after dinner, the same pain occurred, this time more in the RUQ ,across the upper abdomen and radiating to the back. This time it lasted for "a few hours", was associated with nausea. She vomited and this helped alleviate the pain. Thursday morning, she drank coffee containing half and half and about 15 minutes later, the pain began and persisted, prompting her ER visit. In the ER she was noted to be afebrile with P: 78 BP: 120/74. Her WBC was 11. Bili was 1.4 along with AST: 446 ALT: 237 ALP: 127. These have since improved. Abdominal US was unrevealing as was IC contrast CT scan of the abdomen. She states having less intense, similar episodes over the last few years, but the last significant episode remniscent of her current occurred in 2014. At that time she was admitted to [facility] for similar complaints. Transaminases were elevated however ALP and bilirubin remained normal. HIDA scan was unrevealing aside from delayed biliary transit of tracer raising question of biliary dyskinesia vs. opiate analgesia effect. US revealed a thickened gallbladder wall without cholelithiasis and normal diameter CBD. MRCP at that time was unrevealing. The bile duct was normal caliber. She just returned from a HIDA scan. She has been evaluated by surgery and states that she still has an "ache" in the RUQ. There is no personal or inheritable family history of liver disease (maternal grandfather has alcoholic liver disease). She describes social alcohol use, non of late. In 2014 hepatitis B surface antigen was negative. She denies associated diarrhea, fevers/chills, change in ditary patterns. 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 [employer] Place of : [facility] History of Recent Travel: No Home Medications - Allergies Allergies/Adverse Reactions: Allergies Allergy/AdvReac Type Severity Reaction Status Date / Time No Known Allergies Allergy Verified 10/20/18 11:52 - Home Medications Home Medications: Ambulatory Orders Unobtainable 10/20/18 Family Disease History - Family Disease History Family Disease History: Other: Father (Alive: Healthy), Mother (Alive: HTN, DM II, Hyperlipidemia), Brother (1, healthy), Son (None), Daughter (None) Other Family History: No family history of colorectal cancer or other GI malignancy. Maternal GF with alcoholic liver disease. Review of Systems - Review of Systems Constitutional: denies: Chills, Fever, Unintentional Wgt. Loss Cardiovascular: denies: Chest Pain Respiratory: denies: SOB Gastrointestinal: reports: Abdominal Pain, Nausea, Vomiting. denies: Diarrhea, Melena, Rectal Bleeding, Vomiting Blood Physical Exam-GI Vital Signs: Vital Signs Temperature 98.1 F 10/21/18 09:22 Pulse Rate 60 10/21/18 09:22 Respiratory Rate 18 10/21/18 09:22 Blood Pressure 119/79 10/21/18 09:22 O2 Sat by Pulse Oximetry (%) 99 10/20/18 23:00 Constitutional: Yes: Calm Eyes: No: Sclera Icterus Cardiovascular: Yes: Regular Rate and Rhythm Respiratory: Yes: CTA Bilaterally Gastrointestinal Inspection: No: Distention, Scars ...Auscultate: Yes: Normoactive Bowel Sounds ...Palpate: Yes: Soft, Tenderness (TTP RUQ. + farley's sign) ...Percussion: No: Tympanitic Edema: No (No LE edema) Neurological: Yes: Alert Labs: CBC, BMP 10/21/18 07:00 10/21/18 07:00 INR, PTT INR 1.01 (0.83-1.09) 10/20/18 11:30 Hepatic Panel Total Bilirubin 0.9 mg/dL (0.2-1) 10/21/18 07:00 Direct Bilirubin 0.3 mg/dL (0.0-0.2) H 10/21/18 07:00 AST 131 U/L (15-37) H 10/21/18 07:00 ALT 185 U/L (13-61) H 10/21/18 07:00 Alkaline Phosphatase 94 U/L (45-117) 10/21/18 07:00 Albumin 3.2 g/dl (3.4-5.0) L 10/21/18 07:00 Imaging - Results Cat Scan: Report Reviewed, Image Reviewed Ultrasound: Report Reviewed Problem List - Problems (1) Recurrent biliary colic Assessment/Plan: Recurrent biliary colic symptoms. Imaging is unrevealing however, in terms of cholelithiasis or dilated biliary tract. ? passage of microlithiasis. ? SOD ( would be type 2 given elevated liver chemistries without dilated biliary tract) . Acute acalculous chlecystitis still not excluded. Advise: Follow-up HIDA scan MRI of the abdomen with and without contrast, with MRCP to further evaluate biliary tract to exclude retained CBD stone. Lack of dilatation on US makes this lower in differential. IV Abx for now NPO, IV Hydration Surgery is following Code(s): K80.50 - CALCULUS OF BILE DUCT W/O CHOLANGITIS OR CHOLECYST W/O OBST
--- NOTE | 2018-10-21 14:46 | PN ---
Physical Exam: SUBJECTIVE: Patient seen and examined at bedside this morning. Patient is a 28 year old female with past medical history of Sjogren's syndrome and asthma, presented with intermittent RUQ/epigastric pain that worsened 3 days , accompanied by episodes of vomiting. Patient describes pain as sudden onset, cramping at the RUQ radiating to the epigastric/LUQ area and back. She reported her abdominal pain happens a few minutes after eating/drinking and would last about 15 minutes per episode. Patient denies headache, fever, chills, nausea, chest pain, SOB, diarrhea, constipation, urinary symptoms. Of note, patient reported having the same episode of abdominal pain in 2014 where a full work-up was done as well. At that time, patient was told her liver enzymes were elevated. MRI showed marked thickening of the gallbladder wall to 8.4mm. No gallstones. No dilatation of the CBD. Liver is unremarkable. No fatty infiltration. OBJECTIVE: Vital Signs Temperature 98.1 F 10/21/18 09:22 Pulse Rate 60 10/21/18 09:22 Respiratory Rate 18 10/21/18 09:22 Blood Pressure 119/79 10/21/18 09:22 O2 Sat by Pulse Oximetry (%) 99 10/20/18 23:00 GENERAL: The patient is awake, alert, and fully oriented, in no acute distress. HEAD: Normal with no signs of trauma. EYES: PERRLA, EOMI, sclera anicteric, conjunctiva clear. NECK: Trachea midline, full range of motion, supple. LUNGS: Breath sounds equal, clear to auscultation bilaterally. HEART: Regular rate and rhythm, S1, S2 without murmur, rub or gallop. ABDOMEN: Soft, nontender, nondistended, normoactive bowel sounds. EXTREMITIES: 2+ pulses, warm, well-perfused, no edema. NEUROLOGICAL: Cranial nerves II through XII grossly intact. Normal speech, gait not observed. PSYCH: Normal mood, normal affect. SKIN: Warm, dry, normal turgor, no rashes or lesions noted Laboratory Results - last 24 hr 10/21/18 10/21/18 10/21/18 07:00 07:00 07:00 WBC 5.4 RBC 3.74 Hgb 12.0 Hct 35.3 D MCV 94.3 MCH 32.1 MCHC 34.0 RDW 14.0 Plt Count 328 D MPV 7.7 Sodium 142 Potassium 4.3 Chloride 107 Carbon Dioxide 26 Anion Gap 9 BUN 9 Creatinine 0.7 Creat Clearance w eGFR > 60 Random Glucose 75 Calcium 8.4 L Total Bilirubin 0.9 Direct Bilirubin 0.3 H AST 131 H ALT 185 H Alkaline Phosphatase 94 Total Protein 6.0 L Albumin 3.2 L Lipase TSH 2.05 10/21/18 07:00 WBC RBC Hgb Hct MCV MCH MCHC RDW Plt Count MPV Sodium Potassium Chloride Carbon Dioxide Anion Gap BUN Creatinine Creat Clearance w eGFR Random Glucose Calcium Total Bilirubin Direct Bilirubin AST ALT Alkaline Phosphatase Total Protein Albumin Lipase 92 TSH Active Medications Generic Name Dose Route Start Last Admin Trade Name Freq PRN Reason Stop Dose Admin Lactated Ringer's 1,000 ml in 1,000 mls @ 150 mls/hr 10/20/18 18:30 10/21/18 07:35 Lactated Ringers Solution IV 150 mls/hr ASDIR SUDHAKAR Administration Piperacillin Sod/Tazobactam 50 mls @ 100 mls/hr 10/20/18 19:00 Sod 3.375 gm/ Dextrose IVPB Q8H-IV SUDHAKAR Protocol Morphine Sulfate 2 mg 10/20/18 17:51 10/21/18 11:51 Morphine Sulfate IVPUSH 2 mg Q4H PRN Administration PAIN LEVEL 6-10 ASSESSMENT/PLAN: Patient is a 28 year old female with past medical history of Sjogren's syndrome and asthma, presented with intermittent RUQ/epigastric pain that worsened 3 days , accompanied by episodes of vomiting. #RUQ pain likely biliary colic: unknown etiology -CT AP: No definite CT findings of acute pathology. A 1.3cm left hepatic lobe hypodense focus is noted ventrally probably on the basis of normal variation. -RUQ US: unremarkable exam. Gallbladder appear unremarkable without gross stones or wall thickening. -HIDA scan: Filling of the gallbladder excludes acute cystic duct obstruction. -ID (Dr. Wilde)Consulted. REcommendations appreciated. -GI (Dr. Martínez) consulted. Recommendations appreciated. -MRI and MRCP of the abdomen with and without contrast, for further evaluation of biliary tract to exclude retained CBD stone -Continue IV Zosyn 3.375gm q8h for now -NPO -IV LR @150cc/hr -Morphine 2mg q4h PRN for pain. -Surgery (Dr. Portillo) consulted. Recommendations appreciated. #Transaminitis -AST/ALT/alk phos: 446/237/127 --> 131/185/94 -T bili 1.4 --> 0.9; D bili 0.3 -GI consulted. #Sjogren's Syndrome -previously on Plaquenil and Imuran, but patient reported she has not been taking for more than 8 months #FEN -IV LR @150cc/hr -Electrolytes wnl, routine bmp monitoring -NPO for now, await surgery recs #Prophylaxis -early ambulation #Disposition -full code -med-surge Visit type - Emergency Visit Emergency Visit: Yes ED Registration Date: 10/20/18 Care time: The patient presented to the Emergency Department on the above date and was hospitalized for further evaluation of their emergent condition. - New Patient This patient is new to me today: Yes Date on this admission: 10/21/18 - Critical Care Critical Care patient: No
--- NOTE | 2018-10-21 15:31 | PN ---
Progress Note, Physician Chief Complaint: RUQ abdominal pain History of Present Illness: 28yo female with PMH Sjogren's disease, controlled asthma who presents today with 3 days of epigastric abdominal pain 9/10 stabbing in nature with radiation to the back. Abdominal pain is improved greatly. - Current Medication List Current Medications: Active Medications Lactated Ringer's (Lactated Ringers Solution) 1,000 ml in 1,000 mls @ 150 mls/ hr IV ASDIR SUDHAKAR Last Admin: 10/21/18 07:35 Dose: 150 mls/hr Piperacillin Sod/Tazobactam (Sod 3.375 gm/ Dextrose) 50 mls @ 100 mls/hr IVPB Q8H-IV SUDHAKAR; Protocol Morphine Sulfate (Morphine Sulfate) 2 mg IVPUSH Q4H PRN PRN Reason: PAIN LEVEL 6-10 Last Admin: 10/21/18 11:51 Dose: 2 mg - Objective Vital Signs: Vital Signs Temperature 98.1 F 10/21/18 10:00 Pulse Rate 60 10/21/18 10:00 Respiratory Rate 18 10/21/18 10:00 Blood Pressure 119/79 10/21/18 10:00 O2 Sat by Pulse Oximetry (%) 99 10/20/18 23:00 Vital Signs Period Temp Pulse Resp BP Sys/Duval Pulse Ox Last 24 Hr 97.3 F-98.1 F 58-60 18-18 112-119/55-85 99-100 Constitutional: Yes: Well Nourished, No Distress, Calm, Thin Eyes: Yes: Conjunctiva Clear, EOM Intact HENT: Yes: Atraumatic, Normocephalic Neck: Yes: Supple, Trachea Midline Cardiovascular: Yes: Regular Rate and Rhythm, S1, S2 Respiratory: Yes: Regular, CTA Bilaterally Gastrointestinal: Yes: Normal Bowel Sounds, Soft, Abdomen, Obese. No: Tenderness ...Rectal Exam: Yes: Deferred Genitourinary: No: CVA Tenderness - Left, CVA Tenderness - Right Musculoskeletal: No: Muscle Pain, Muscle Weakness Extremities: No: Cool, Cyanosis Edema: No Peripheral Pulses WNL: Yes Peripheral Pulses: Left Radial: 2+, Right Radial: 2+, Left Doralis Pedis: 2+, Right Dorsalis Pedis: 2+, Left Femoral: 2+, Right Femoral: 2+ Integumentary: No: Jaundice, Skin Tear, Tattoos, Venous Stasis Changes Neurological: Yes: Alert, Oriented Psychiatric: Yes: Alert, Oriented Labs: CBC, BMP 10/21/18 07:00 10/21/18 07:00 INR, PTT INR 1.01 (0.83-1.09) 10/20/18 11:30 Problem List - Problems (1) Recurrent biliary colic Assessment/Plan: 28yo female with recurrent biliary colic, previous diagnosis of GB dyskinesia , HIDA negative, Agree with GI. Advance diet as tolerated IVF hydration IV antibiotics per ID Low fat diet Discharge at the discretion of the Primary team no need for surgical followup Thank you for the opportunity to participate in the care of this patient. Code(s): K80.50 - CALCULUS OF BILE DUCT W/O CHOLANGITIS OR CHOLECYST W/O OBST (2) Biliary colic symptom Code(s): K80.50 - CALCULUS OF BILE DUCT W/O CHOLANGITIS OR CHOLECYST W/O OBST (3) Asthma Code(s): J45.909 - UNSPECIFIED ASTHMA, UNCOMPLICATED Qualifiers: Asthma severity: mild intermittent (4) RUQ abdominal pain Code(s): R10.11 - RIGHT UPPER QUADRANT PAIN (5) Sjogren's disease Code(s): M35.00 - SICCA SYNDROME, UNSPECIFIED
--- NOTE | 2018-10-21 16:02 | PN ---
Teaching Attending Note Name of Resident: Dee Dee Olivera ATTENDING PHYSICIAN STATEMENT I saw and evaluated the patient. I reviewed the resident's note and discussed the case with the resident. I agree with the resident's findings and plan as documented. SUBJECTIVE: Patient is feeling better. pain is improving. OBJECTIVE: Vital Signs Temperature 98.1 F 10/21/18 10:00 Pulse Rate 60 10/21/18 10:00 Respiratory Rate 18 10/21/18 10:00 Blood Pressure 119/79 10/21/18 10:00 O2 Sat by Pulse Oximetry (%) 99 10/20/18 23:00 GENERAL: Awake, alert, and fully oriented, in no acute distress. HEAD: Normal with no signs of trauma. EYES: Pupils equal, round and reactive to light, extraocular movements intact, sclera anicteric, conjunctiva clear. EARS, NOSE, THROAT: Ears normal, oropharynx clear without exudates. Moist mucous membranes. NECK: Normal range of motion, supple without lymphadenopathy, JVD, or masses. LUNGS: Breath sounds equal, clear to auscultation bilaterally. No wheezes, and no crackles. No accessory muscle use. HEART: Regular rate and rhythm, normal S1 and S2 without murmur, rub or gallop. ABDOMEN: positive for Mejía's sign, Soft, less tender to palpation. No hepatomegaly or splenomegaly. EXTREMITIES: 2+ pulses, warm, well-perfused. No cyanosis. No clubbing. No peripheral edema. NEUROLOGICAL: Cranial nerves II-XII intact. Normal speech. Normal gait. PSYCHIATRIC: Cooperative. Good eye contact. Appropriate mood and affect. SKIN: Warm, dry, normal turgor, no rashes or lesions noted, normal capillary refill. CBCD WBC 5.4 K/mm3 (4.0-10.0) 10/21/18 07:00 RBC 3.74 M/mm3 (3.60-5.2) 10/21/18 07:00 Hgb 12.0 GM/dL (10.7-15.3) 10/21/18 07:00 Hct 35.3 % (32.4-45.2) D 10/21/18 07:00 MCV 94.3 fl (80-96) 10/21/18 07:00 MCHC 34.0 g/dl (32.0-36.0) 10/21/18 07:00 RDW 14.0 % (11.6-15.6) 10/21/18 07:00 Plt Count 328 K/MM3 (134-434) D 10/21/18 07:00 MPV 7.7 fl (7.5-11.1) 10/21/18 07:00 CMP Sodium 142 mmol/L (136-145) 10/21/18 07:00 Potassium 4.3 mmol/L (3.5-5.1) 10/21/18 07:00 Chloride 107 mmol/L (98-107) 10/21/18 07:00 Carbon Dioxide 26 mmol/L (21-32) 10/21/18 07:00 Anion Gap 9 MMOL/L (8-16) 10/21/18 07:00 BUN 9 mg/dL (7-18) 10/21/18 07:00 Creatinine 0.7 mg/dL (0.55-1.3) 10/21/18 07:00 Creat Clearance w eGFR > 60 (>60) 10/21/18 07:00 Random Glucose 75 mg/dL (74-106) 10/21/18 07:00 Calcium 8.4 mg/dL (8.5-10.1) L 10/21/18 07:00 Total Bilirubin 0.9 mg/dL (0.2-1) 10/21/18 07:00 AST 131 U/L (15-37) H 10/21/18 07:00 ALT 185 U/L (13-61) H 10/21/18 07:00 Alkaline Phosphatase 94 U/L (45-117) 10/21/18 07:00 Total Protein 6.0 g/dl (6.4-8.2) L 10/21/18 07:00 Albumin 3.2 g/dl (3.4-5.0) L 10/21/18 07:00 Current Medications Generic Name Dose Route Start Last Admin Trade Name Freq PRN Reason Stop Dose Admin Lactated Ringer's 1,000 ml in 1,000 mls @ 150 mls/hr 10/20/18 18:30 10/21/18 07:35 Lactated Ringers Solution IV 150 mls/hr ASDIR SUDHAKAR Administration Piperacillin Sod/Tazobactam 50 mls @ 100 mls/hr 10/20/18 19:00 Sod 3.375 gm/ Dextrose IVPB Q8H-IV SUDHAKAR Protocol Morphine Sulfate 2 mg 10/20/18 17:51 10/21/18 11:51 Morphine Sulfate IVPUSH 2 mg Q4H PRN Administration PAIN LEVEL 6-10 Home Medications Medication Instructions Recorded Unobtainable 10/20/18 US - no stones, no PCCF, no GB wall thickening CT - no obstruction, liver lesion, no other findings ASSESSMENT AND PLAN: Patient is a 28yo F with history of Sjogren's disease and asthma who presents today with 3 days hx of RUQ abdominal pain 9/10 stabbing in nature with radiation to the back, with worsening symptoms after having a koo dish for dinner. also c/o having chills with some cold sweats during the past three days. # Acute cholecystitis vs acalculus cholecystitis cannot be ruled out, will continue IV zosyn, Hida scan is within normal limit. Gi and surgery Dr aguirre on the case. will monitor, possible that the patient passed a small stone. # Elevated transaminitis : improving . will continue to monitor. DVt Px: heparin sq
[2018-10-21] MEDS ORDERED: LACTATED RINGERS SOLUTION 1,000 ML/1,000 ML INFUS.BAG IV SCH (16:26)
[2018-10-22 07:23] LABS: ALK PHOS 83 U/L (45-117); ANION GAP 6 MMOL/L (8-16); BILIRUBIN,TOTAL 0.5 mg/dL (0.2-1); BLOOD UREA NITROGEN 9 mg/dL (7-18); CALCIUM 8.2 mg/dL (8.5-10.1); CHLORIDE 105 mmol/L (98-107); CO2 29 mmol/L (21-32); CREATININE 0.5 mg/dL (0.55-1.3); GLUCOSE,RANDOM 84 mg/dL (74-106); MAGNESIUM 1.5 mg/dL (1.8-2.4); PHOSPHOROUS 3.3 mg/dL (2.5-4.9); POTASSIUM 4.1 mmol/L (3.5-5.1); SGOT/AST 49 U/L (15-37); SGPT/ALT 118 U/L (13-61); SODIUM 140 mmol/L (136-145); TOT PROT 5.9 g/dl (6.4-8.2)
--- NOTE | 2018-10-22 07:40 | PN ---
Teaching Attending Note Name of Resident: Dee Dee Olivera ATTENDING PHYSICIAN STATEMENT I saw and evaluated the patient. I reviewed the resident's note and discussed the case with the resident. I agree with the resident's findings and plan as documented. SUBJECTIVE: Patient is comfortable with no acute distress, no shortness of breath. Feels better with no acute distress. No further abdominal pain. OBJECTIVE: Vital Signs Temperature 97.9 F 10/22/18 06:00 Pulse Rate 61 10/22/18 06:00 Respiratory Rate 20 10/22/18 06:00 Blood Pressure 116/59 L 10/22/18 06:00 O2 Sat by Pulse Oximetry (%) 100 10/21/18 09:00 GENERAL: Awake, alert, and fully oriented, in no acute distress. HEAD: Normal with no signs of trauma. EYES: Pupils equal, round and reactive to light, extraocular movements intact, sclera anicteric, conjunctiva clear. EARS, NOSE, THROAT: Ears normal, oropharynx clear without exudates. Moist mucous membranes. NECK: Normal range of motion, supple without lymphadenopathy, JVD, or masses. LUNGS: Breath sounds equal, clear to auscultation bilaterally. No wheezes, and no crackles. HEART: Regular rate and rhythm, normal S1 and S2 without murmur, rub or gallop. ABDOMEN: soft, NT, No hepatomegaly or splenomegaly. EXTREMITIES: 2+ pulses, warm, well-perfused. No cyanosis. No clubbing. No peripheral edema. NEUROLOGICAL: Cranial nerves II-XII intact. Normal speech. PSYCHIATRIC: Cooperative. Good eye contact. Appropriate mood and affect. SKIN: Warm, dry, normal turgor, no rashes or lesions noted, normal capillary refill. CBCD WBC 5.4 K/mm3 (4.0-10.0) 10/21/18 07:00 RBC 3.74 M/mm3 (3.60-5.2) 10/21/18 07:00 Hgb 12.0 GM/dL (10.7-15.3) 10/21/18 07:00 Hct 35.3 % (32.4-45.2) D 10/21/18 07:00 MCV 94.3 fl (80-96) 10/21/18 07:00 MCHC 34.0 g/dl (32.0-36.0) 10/21/18 07:00 RDW 14.0 % (11.6-15.6) 10/21/18 07:00 Plt Count 328 K/MM3 (134-434) D 10/21/18 07:00 MPV 7.7 fl (7.5-11.1) 10/21/18 07:00 CMP Sodium 140 mmol/L (136-145) 10/22/18 06:00 Potassium 4.1 mmol/L (3.5-5.1) 10/22/18 06:00 Chloride 105 mmol/L (98-107) 10/22/18 06:00 Carbon Dioxide 29 mmol/L (21-32) 10/22/18 06:00 Anion Gap 6 MMOL/L (8-16) L 10/22/18 06:00 BUN 9 mg/dL (7-18) 10/22/18 06:00 Creatinine 0.5 mg/dL (0.55-1.3) L 10/22/18 06:00 Creat Clearance w eGFR > 60 (>60) 10/22/18 06:00 Random Glucose 84 mg/dL (74-106) 10/22/18 06:00 Calcium 8.2 mg/dL (8.5-10.1) L 10/22/18 06:00 Total Bilirubin 0.5 mg/dL (0.2-1) 10/22/18 06:00 AST 49 U/L (15-37) H 10/22/18 06:00 ALT 118 U/L (13-61) H 10/22/18 06:00 Alkaline Phosphatase 83 U/L (45-117) 10/22/18 06:00 Total Protein 5.9 g/dl (6.4-8.2) L 10/22/18 06:00 Albumin 3.0 g/dl (3.4-5.0) L 10/22/18 06:00 Current Medications Generic Name Dose Route Start Last Admin Trade Name Freq PRN Reason Stop Dose Admin Piperacillin Sod/Tazobactam 50 mls @ 100 mls/hr 10/20/18 19:00 Sod 3.375 gm/ Dextrose IVPB Q8H-IV SUDHAKAR Protocol Lactated Ringer's 1,000 ml in 1,000 mls @ 100 mls/hr 10/21/18 16:26 10/21/18 17:17 Lactated Ringers Solution IV 100 mls/hr ASDIR SUDHAKAR Administration Magnesium Oxide 800 mg 10/22/18 07:35 Mag-Ox - PO 10/22/18 07:36 ONCE ONE Morphine Sulfate 2 mg 10/20/18 17:51 10/21/18 11:51 Morphine Sulfate IVPUSH 2 mg Q4H PRN Administration PAIN LEVEL 6-10 Home Medications Medication Instructions Recorded NK [No Known Home Medication] 10/22/18 Microbiology 10/20/18 11:30 Urine - Urine Clean Catch Urine Culture - Final NO GROWTH OBTAINED US - no stones, no PCCF, no GB wall thickening CT - no obstruction, liver lesion, no other findings ASSESSMENT AND PLAN: Patient is a 28yo F with history of Sjogren's disease and asthma who presents today with 3 days hx of RUQ abdominal pain 9/10 stabbing in nature with radiation to the back, with worsening symptoms after having a koo dish for dinner. also c/o having chills with some cold sweats during the past three days. # Acute cholecystitis is rulled out , patient is comfortable , with no acute distress, LFts improved, discussed with Dr. 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 Richard within a week, for further evaluation. Hida scan is within NL limit. most likely patient passed the stone. # Elevated transaminitis :trending down, follow with GI dr. richard within a week. discharge patient home.
[2018-10-22] MEDS ORDERED: MAGNESIUM OXIDE 400 MG TABLET (FP) PO ONE (08:15)
[2018-10-22 10:18] VITALS: BP 117/59; PULSE 78; TEMP 97.4
--- NOTE | 2018-10-22 15:04 | DS ---
Physical Exam: SUBJECTIVE: Patient seen and examined at bedside this morning. No acute events overnight. Patient has no new complaints today. Denies abdominal pain, fever, chills, headache, chest pain, SOB, diarrhea, constipation. OBJECTIVE: Vital Signs Period Temp Pulse Resp BP Sys/Duval Pulse Ox Last 24 Hr 97.4 F-97.9 F 61-78 20-20 116-135/59-85 99 PHYSICAL EXAM GENERAL: The patient is awake, alert, and fully oriented, in no acute distress. HEAD: Normal with no signs of trauma. EYES: PERRLA, EOMI, sclera anicteric, conjunctiva clear. NECK: Trachea midline, full range of motion, supple. LUNGS: Breath sounds equal, clear to auscultation bilaterally. HEART: Regular rate and rhythm, S1, S2 without murmur, rub or gallop. ABDOMEN: Soft, nontender, nondistended, normoactive bowel sounds. EXTREMITIES: 2+ pulses, warm, well-perfused, no edema. NEUROLOGICAL: Cranial nerves II through XII grossly intact. Normal speech, gait not observed. PSYCH: Normal mood, normal affect. SKIN: Warm, dry, normal turgor, no rashes or lesions noted LABS Laboratory Results - last 24 hr 10/22/18 06:00 Sodium 140 Potassium 4.1 Chloride 105 Carbon Dioxide 29 Anion Gap 6 L BUN 9 Creatinine 0.5 L Creat Clearance w eGFR > 60 Random Glucose 84 Calcium 8.2 L Phosphorus 3.3 Magnesium 1.5 L Total Bilirubin 0.5 AST 49 H ALT 118 H Alkaline Phosphatase 83 Total Protein 5.9 L Albumin 3.0 L -CT AP: No definite CT findings of acute pathology. A 1.3cm left hepatic lobe hypodense focus is noted ventrally probably on the basis of normal variation. -RUQ US: unremarkable exam. Gallbladder appear unremarkable without gross stones or wall thickening. -HIDA scan: Filling of the gallbladder excludes acute cystic duct obstruction. -MRI: No cholelithiasis or choledocholithiasis nor pancreaticobiliary ductal dilatation. 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 HOSPITAL COURSE: Date of Admission:10/20/18 Date of Discharge: 10/22/18 Patient is a 28 year old female with past medical history of Sjogren's syndrome and asthma, presented with intermittent RUQ/epigastric pain that worsened 3 days , accompanied by episodes of vomiting. Surgery and GI were consulted. CT, Ultrasound, HIDA scan and MRI with MRCP were done. PAtient was also noted to have elevated liver enzymes. Imaging were negative of any indication for surgical intervention. PAtient was started on fluids and pain management. Patient continued to improve throughout her hospital stay. Liver enzymes were trended and improved. Patient was discharged with instructions to follow-up with Surgery and GI. Minutes to complete discharge: 40 Discharge Summary Reason For Visit: ELEVATED LIVER ENZYMES Condition: Improved - Instructions Diet, Activity, Other Instructions: Your visit You came to the hospital because you had abdominal pain. Lab tests were negative of any concerns. You were seen by surgery (Dr. Portillo) and no surgical intervention was needed. MRI was done and the vocal artist recommended close follow-up. Please see Dr. Martínez within 1 week to discuss the results and further management. Care -Eat a healthy diet with high fiber and drink plenty of water. Avoid fatty foods. -Exercise regularly. Follow-ups -Follow-up with your primary care physician (Dr. Forrest) within 1 week. -Follow-up with the vocal artist (Dr. Martínez) within 1 week. Please call his office to schedule an appointment. Additional info Call 911 or go to the ED if with any worsening fever, chills, headache, chest pain, shortness of breath, belly pain, diarrhea, bloody stools or any new concerns noted. Referrals: Ciarra Forrest [Other] - 1 Week Clint Martínez DO [Staff Physician] - 1 Week Srinivasan Portillo MD [Staff Physician] - 1 Week Disposition: HOME - Home Medications Comprehensive Discharge Medication List: Ambulatory Orders NK [No Known Home Medication] 10/22/18 This patient is new to me today: No Emergency Visit: Yes ED Registration Date: 10/20/18 Care time: The patient presented to the Emergency Department on the above date and was hospitalized for further evaluation of their emergent condition. Critical Care patient: No - Discharge Referral Referred to [facility] No
[2018-10-24 02:08] LABS: HBSAG SCREEN Negative (Negative); HEP A AB, IGM Negative (Negative); HEP B CORE AB, TOT Negative (Negative)
== END 2018-10-22 14:52 | disposition home or self-care (01) ==
LOC: JER 09:41 → JERBED 17:15 → OBSVTOIN 17:51 → J5S 22:18
PROVIDERS: ADMIT Internal Medicine; ATTEND Internal Medicine
DX: R94.5 Abnormal results of liver function studies (principal); M35.00 Sjogren syndrome, unspecified; J45.909 Unspecified asthma, uncomplicated; Z87.891 Personal history of nicotine dependence; H04.123 Dry eye syndrome of bilateral lacrimal glands; D47.3 Essential (hemorrhagic) thrombocythemia
CPT/HCPCS: 36415; 74177-TC; 74183-TC; 76705-TC; 78226-TC; 80053; 81003; 82150; 82248; 83690; 83735; 84100; 84443; 84703; 85025; 85027; 85610; 86704; 86706; 86708; 86803; 87086; 87340; 90688; 93005; 93010; 99284-25; A9537; G0008; G0378; J0131; J7030